=== PATIENT | female | born 1990 | race Caucasian/White ===

== ENCOUNTER 2019-02-11 08:03 | Day surgery (SDC) | payer MEDICAID ==
[2019-02-09 13:59] LABS: BASOPHILS % (AUTO) 0.5 % (0-1); EOSINOPHILS # (AUTO) 0.1 X10'3 (0-0.9); EOSINOPHILS % (AUTO) 0.9 % (0-6); LYMPHOCYTES # (AUTO) 2.3 X10'3 (1.1-4.8); LYMPHOCYTES % (AUTO) 30.5 % (21-51); MEAN CORPUSCULAR HEMOGLOBIN 30.6 PG (27.0-31.0); MEAN CORPUSCULAR HGB CONC 33.9 g/dL (33.0-36.5); MEAN CORPUSCULAR VOLUME 90.5 FL (78-98); MONOCYTES # (AUTO) 0.3 X10'3 (0-0.9); MONOCYTES % (AUTO) 4.3 % (2-12); NEUTROPHILS # (AUTO) 4.7 X10'3 (1.8-7.7); NEUTROPHILS % (AUTO) 63.8 % (42-75); PRE OP HEMOGLOBIN 13.6 g/dL (12.0-16.0); PRE OP PLATELET COUNT 287 X10'3 (140-440); RED BLOOD COUNT 4.42 X10'6 (4.20-5.60); RED CELL DISTRIBUTION WIDTH 12.7 % (11.5-14.5)
[2019-02-09 14:06] LABS: HCG SERUM QL NEGATIVE
[~2019-02-11] VITALS: Ht 162.6 cm; Wt 50.3 kg
[2019-02-11] VITALS (12 sets, daily range): BP systolic 112–155; BP diastolic 51–111
[~2019-02-11 08:03] MED LIST: NORE1TAB99 PO; famotidine 20mg tablet PO ONE; ringers solution, lacted 1,000 ML IV SCH
[2019-02-11] MEDS ORDERED: ROPIVAcaine 0.5% (5mg/ml) 30ml vial ONE (09:05)
[2019-02-11] MEDS ORDERED: ringers solution, lacted 1,000 ML IV SCH (09:51)
[2019-02-11] MEDS ORDERED: meperidine/PF 25mg/ml syringe IV PRN ×3 (09:55)
[2019-02-11] MEDS ORDERED: ondansetron/PF 4mg/2ml inj IV PRN (09:55)
[2019-02-11] MEDS ORDERED: morphine 4 MG/ML inj SYRINge IV PRN ×2 (09:55)
[2019-02-11] MEDS ORDERED: proCHLORperazine 10 MG/2 ml inj IV PRN (09:55)
[2019-02-11] MEDS ORDERED: sevoflurane 250ml liquid IH ONE (10:10)
[2019-02-11] MEDS ORDERED: fentaNYL/PF 50MCG/1 ML 2ML syringe ONE (10:12)
[2019-02-11] MEDS ORDERED: midazolam 2 mg/2 ml injection ONE (10:12)
[2019-02-11] MEDS ORDERED: glycopyrrolate 0.2mg/ml inj ONE (10:21)
[2019-02-11] MEDS ORDERED: LIDOcaine 2% (20mg/ml) 5ml vial ONE (10:21)
[2019-02-11] MEDS ORDERED: ondansetron/PF 4mg/2ml inj ONE (10:21)
[2019-02-11] MEDS ORDERED: propofol inj 20 ML IV ONE (10:21)
[2019-02-11] MEDS ORDERED: neostigmine methylsulfate 1 MG/ML 10ml vial ONE (10:21)
[2019-02-11] MEDS ORDERED: dexamethasone sod phosphate 4mg/ml inj. ONE (10:21)
[2019-02-11] MEDS ORDERED: rocuronium 10mg/ml inj IV ONE (10:21)
[2019-02-11] MEDS ORDERED: oxyCODONE/APAP 5-325mg tablet PO PRN (10:30)
[2019-02-11] MEDS ORDERED: ketorolac trometh. 30mg/ml inj. ONE (10:57)
--- NOTE | 2019-02-11 11:05 | NUR ---
Received from OR via [facility] , accompanied by Anesthesiologist GILBERTO and report given by Anesthesiolgist. PATIENT WITH 20G PIV IN LEFT UE RUNNING LR AT 100. DENIES PAIN. ONLY C.O. NEED TO VOID. PLACED ON BEDPAN WHERE SHE VOIDED 10-15 CC.10L MASK ON WITH 100% SATURATIONS. Addendum: 02/11/19 at 1122 by Deni Ordaz RN, RN Amended: Links added.
--- NOTE | 2019-02-11 12:45 | NUR ---
ALL DC CRITERIA HAS BEEN MET. IV TAKEN OUT WITHOUT COMPLICATIONS. ALL INSTRUCTIONS COVERED AND ALL QUESTIONS ANSWERED. DRESSINGS CDI. OUT VIA WHEELCHAIR TO PERSONAL VEHICLE WHERE PATIENT WAS SECURED IN AND DRIVEN HOME BY FAMILY. VOIDED AND DRESSED SELF. AMBULATED TO CAR WITH NO LOB OR DIFFICULTY. PAIN AT A TOLERABLE LEVEL AT THIS TIME Addendum: 02/11/19 at 1259 by Deni Ordaz RN, RN Amended: Links added.
== END 2019-02-11 12:45 | disposition home or self-care (01) ==
LOC: PAS 08:03
PROVIDERS: ATTEND Obstetrics & Gynecology
DX: Z30.2 Encounter for sterilization (principal); Z87.891 Personal history of nicotine dependence; Z86.14 Personal history of Methicillin resistant Staphylococcus aureus infection; Z79.899 Other long term (current) drug therapy; Z82.5 Family history of asthma and other chronic lower respiratory diseases
CPT/HCPCS: 36415; 58661; 82948; 84703; 85025; J1100; J1885; J2001; J2250; J2405; J2704; J2710; J3010; A4618; A6250; J2795; J3490; J7120

== ENCOUNTER 2020-10-17 09:10 | Emergency (ER) | payer MEDICAID ==
[~2020-10-17] VITALS: Ht 162.6 cm; Wt 50.0 kg
[~2020-10-17 09:10] MED LIST changes: -famotidine 20mg tablet PO ONE; -ringers solution, lacted 1,000 ML IV SCH
[2020-10-17 09:17] VITALS: BP 123/74
[2020-10-17] MEDS ORDERED: HYDR28CR14 TOP (10:37)
== END 2020-10-17 10:49 | disposition home or self-care (01) ==
LOC: ER 09:11
DX: L50.9 Urticaria, unspecified (principal); Z79.899 Other long term (current) drug therapy
CPT/HCPCS: 99282

== ENCOUNTER 2024-01-02 09:45 | Emergency (ER) | payer MEDICAID ==
[~2024-01-02] VITALS: Ht 162.6 cm; Wt 50.9 kg
[~2024-01-02 09:45] MED LIST changes: +HYDR28CR14 TOP
[2024-01-02 10:02] VITALS: TEMP 98
[2024-01-02] MEDS: ketorolac trometh. 30mg/ml inj. IM ONE (10:29)
[2024-01-02] MEDS: ondansetron 4mg rapidly disintigrating tab PO ONE (10:29)
[2024-01-02 11:08] LABS: BILIRUBIN,URINE NEGATIVE (Neg); CLARITY,URINE SLIGHTLY CLOUDY (Clear); COLOR,URINE YELLOW (Yellow); GLUCOSE, URINE NEGATIVE (Neg); KETONES,URINE 15 mg/dl (Neg); LEUKOCYTE ESTERASE ,URINE NEGATIVE (Neg); NITRITES, URINE NEGATIVE (Neg); OCCULT BLOOD,URINE NEGATIVE (Neg); PH,URINE 8.5 (4.8-8.0); PROTEIN,URINE NEGATIVE (Neg)
[2024-01-02 11:39] LABS: UA COLLECTION TYPE CLN CATCH MIDSTREAM
[2024-01-02 11:40] LABS: AMORPHOUS PHOSPHATES 2+; BACTERIA,URINE NONE SEEN /HPF (Neg); MUCUS STRANDS FEW /LPF (Neg); RBC,URINE NONE SEEN /HPF (0-2); SQUAMOUS EPITHELIAL CELL,UR NONE SEEN /LPF (FEW); WBC,URINE NONE SEEN /HPF (0-4)
[2024-01-02 12:21] VITALS: BP 127/75; PULSE 81; RESP 15; O2SAT 99
[2024-01-02 12:29] LABS: SYPHILIS SCREENING TEST POC NEGATIVE (Negative)
== END 2024-01-02 12:23 | disposition home or self-care (01) ==
LOC: ER 09:51
DX: R10.2 Pelvic and perineal pain (principal); Z79.899 Other long term (current) drug therapy; Z98.51 Tubal ligation status
CPT/HCPCS: 36415; 76856; 81001; 87491; 87591; 93976; 96372; 99285; J1885; Q0112

== ENCOUNTER 2024-03-22 17:51 | Emergency (ER) | payer MEDICAID ==
[2024-03-22 19:30] VITALS: BP 112/64; PULSE 74; RESP 18; TEMP 98.8; O2SAT 98
== END 2024-03-22 19:31 | disposition home or self-care (01) ==
LOC: ER 17:52
DX: M79.671 Pain in right foot (principal)
CPT/HCPCS: 73610; 99283; A6449

== ENCOUNTER 2025-02-22 10:49 | Emergency (ER) | payer MEDICAID ==
[~2025-02-22] VITALS: Ht 167.6 cm; Wt 49.0 kg
[2025-02-22 10:55] VITALS: BP 140/90; PULSE 94; RESP 18; TEMP 97.8; O2SAT 100
--- NOTE | 2025-02-22 11:32 | Physician Documentation ---
History of Present Illness ~ Chief Complaint: Anxiety Stated Complaint: ANXIETY Time Seen by MD: 11:18 HPI 35 Female presents to the ED with a complaint of a panic attack after calling EMS today She states that she caught her cheating in his being and has a restraining order placed on her, along with this is all occurred over the last two weeks and now has a domestic violence charge. Denies any SI or HI. States she just feels overwhelmed She says she has felt anxious all weekend and took all over 0.5 mg Ativan pills. Says that she has taken every psychiatric drug for anxiety including hydroxyzine which he says does not work Medication Reconciliation Allergies: Coded Allergies: No Known Allergies (Unverified , 03/22/24) Scheduled Hydrocortisone (hydrocortisone 1% cream), 1 APPLIC TOP Q12H Noreth A-Et Estra/Fe Fumarate (Lo Loestrin Fe 1-10 Tablet), 1 TAB PO DAILY, (Reported) Past Medical History Past Medical History: No Pertinent History Review of Systems All Other Systems at this time: Reviewed and Negative ROS As stated above in the HPI, otherwise all systems are reviewed and negative. Physical Exam Vital Signs: Temperature: 97.8, Source: Temporal, Heart Rate: 94, Respiratory Rate: 18, BP: 140/90, Pulse Oximetry: 100, Weight: 49.000 Physical Exam General: Alert, no apparent distress. HEENT: PERRL, EOMI, no injection, moist mucous membranes. Neurologic: Oriented x4. Psychiatric: Anxious appearing. Tearful Skin: Normal color, warm and dry. No edema, no ecchymosis. Progress Results/Orders Results/Orders Vital Signs 02/22/25 10:55 Temp 97.8 Pulse 94 Resp 18 B/P (MAP) 140/90 Pulse Ox 100 Medical Decision Making Differential Dx:Considerations: Include: Alcohol abuse, Anxiety, Bipolar disorder, Conversion disorder, Depression, Encephaloathy, Homicidal, Panic disorder, Personality disorder, Schizophrenia, Substance abuse, Suicidal, Other Departure Disposition: 01 HOME / SELF CARE / HOMELESS Impression: Primary Impression: Anxiety Additional Impression: Panic attack Condition: Stable Discharge Instructions: Emotional Crisis Referrals: NO PRIMARY CARE PROVIDER (PCP) Signature Scribe Signature: f Attestation: Scribed for Beny Womack Grape Picker by Beny Ordaz NP . 02/22/25 17:33 BENY WOMACK NP Feb 22, 2025 11:31
== END 2025-02-22 11:55 | disposition home or self-care (01) ==
LOC: ER 10:50
DX: F41.0 Panic disorder [episodic paroxysmal anxiety] (principal); Z79.899 Other long term (current) drug therapy
CPT/HCPCS: 99283